=== PATIENT | female | born 1990 | race Caucasian/White ===

== ENCOUNTER 2017-07-20 03:50 | Inpatient (IN) | payer MEDICAID ==
[~2017-07-20] VITALS: Ht 165.1 cm; Wt 84.4 kg
[2017-07-20] MEDS ORDERED: OXYTOCIN 30 UNIT/D5LR 500 ML 500 ML IV PRN (04:36)
[2017-07-20] MEDS ORDERED: FAMOTIDINE(*) 20MG/50ML PREMIX 50 ML IVPB PRN (04:36)
[2017-07-20] MEDS ORDERED: METOCLOPRAMIDE 10 MG/2 ML SDV IVP PRN (04:40)
[2017-07-20] MEDS ORDERED: LIDOCAINE 1% LOCAL 300 MG/30ML INJ PRN (04:40)
[2017-07-20] MEDS ORDERED: fentaNYL CITR 100 MCG/2 ML AMP IVP PRN (04:40)
[2017-07-20] MEDS ORDERED: FLUSH 10 ML SYR IVP PRN (04:40)
[2017-07-20] MEDS ORDERED: LIDOCAINE/SOD BICARB 8.4% SYR SC PRN (04:40)
[2017-07-20] MEDS: LR(*) 1000 ML BAG 1,000 ML IV SCH ×3 (04:53→12:38)
[2017-07-20] MEDS ORDERED: PREN-148 PO (04:56)
[2017-07-20] MEDS ORDERED: FAMO20TA28 PO (04:56)
[2017-07-20 05:00] VITALS: BP 116/73; Ht 165.1 cm; Wt 84.4 kg
[2017-07-20 05:13] LABS: PLATELET COUNT, AUTOMATED 223 K/uL (150-450)
[2017-07-20] MEDS ORDERED: FENTANYL/ROPIVACAINE 100 ML BAG EPI PRN (05:50)
[2017-07-20] MEDS ORDERED: LIDOCAINE/PF 2% 200MG/10ML AMP 200 MG/10 ML AMPUL EPI PRN (05:50)
[2017-07-20] MEDS ORDERED: BUPIVACAINE 0.5% INJ 30ML VIAL EPI PRN (05:50)
[2017-07-20] MEDS ORDERED: ePHEDrine 25 MG/5 ML DISP.SYR IVP PRN (05:50)
[2017-07-20] MEDS ORDERED: BUPIVACAINE 0.25% MPF INJ EPI PRN (05:50)
[2017-07-20] MEDS ORDERED: LIDO/EPI 2% MPF 1:200,000 20ML EPI PRN (05:50)
[2017-07-20] MEDS ORDERED: fentaNYL CITR 100 MCG/2 ML AMP IT PRN (05:50)
--- NOTE | 2017-07-20 06:59 | History & Physical ---
History of Present Illness Age of Patient: 27 : 1 Para or TPAL: 0 EDC per LMP: Jul 30, 2017 EDC per U/S: Jul 18, 2017 Estimated Gestational Age: 40.2 Chief Complaint Contractions. History of Present Illness Admitted at term due to increasingly painful uterine contractions that became regular at about 0200 hours. No vaginal fluid leakage or bleeding. No OB complications. She had low back pain in late , and was referred to physical therapy, but declined. record is reviewed. History Patient's Blood Type: O Positive Rubella Status: Non-Immune Group B Strep Screen: Negative (06/22/17) Obstetrical History: Primigravida. Past Medical History: Unremarkable. 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 Single, but FOC is present and supportive. Denies use of alcohol, tobacco, or illicit drugs. Med Rec Home Meds Reported Medications Famotidine (PEPCID) 20 Mg Tablet, 20 MG PO QDAY Y for HEARTBURN, #10 TAB 07/20/17 Vit W-Ca,Fe,FA(<1 mg) ( Formula) 1 Each Tablet, PO DAILY 07/20/17 Exam General Exam Vital Signs Vital Signs Date Time Temp Pulse Resp B/P (MAP) Pulse Ox O2 Delivery O2 Flow Rate FiO2 07/20/17 05:00 97.4 98 18 116/73 (87) 99 Room Air General Apperance: Alert/Awake/No Acute Distress (appears in no apparent distress, but rates contraction pain as 6/10) Neuro: No Gross deficits Eyes: Normal Extraocular Movement & Vison ENT: Normal, Moist Mucous Membranes Neck: No Masses Cardiovascular: Regular Rate and Rhythm Respiratory: No Respiratory Distress, Clear to Auscultation Abdomen: Gravid - Non-Tender : No CVA Tenderness Musculoskeletal: No Weakness/Pain Extremities: Reflexes (2+/4 and symmetric), Edema (1+ bilateral pretibial), No Tender Calves Integumentary: Skin Intact without Lesions or Rash Psychological: Alert & Oriented X3, Appropriate Mood & Affect Cervical Dialation: 3 (per RN at 0413 hours) Cervical Effacement (%): 90 Station: -2 Presentation: Vertex Fetus Heart Tones: 130 FHT Category: I Medical Decision Making Data Points Result Diagram: 07/20/17 0445 VTE Prophylasis: Adult Pharmacological Contraindicati: Pt at Low Risk for VTE Mechanical Contraindications: Pt at Low Risk for VTE Assessment and Plan Problems: (1) 40 weeks gestation of Status: Acute Assessment & Plan: In early labor. I anticipate that she will probably want an epidural anesthetic in the next few hours. I also anticipate vaginal delivery. Copies to: MICHAEL VASQUEZ MARK F MD Jul 20, 2017 06:59
[2017-07-20] MEDS ORDERED: EPIDURAL KEYS XX PRN (08:00)
--- NOTE | 2017-07-20 09:55 | Labor Progress Note ---
Labor Subjective Progress Notes Subjective Doing good. Doesn't desire any pain medication at this time. Ambulatory for pain control. Good movement. No loss of amniotic fluid Feeling Movement?: Yes Vaginal Discharge/Fluid: No Bloody Show, No Clear Fluid, No Bloody Fluid, No Green Tinged Fluid, No Dark Green Fluid, No Mucous, No Small Amount, No Moderate Amount, No Large Amount, No Other Labor Pain: Mild Neurological: No Headache, No Other Eyes: No Visual Disturbances Labor Objective Vital Signs Vital Signs Date Time Temp Pulse Resp B/P (MAP) Pulse Ox O2 Delivery O2 Flow Rate FiO2 07/20/17 05:00 97.4 98 18 116/73 (87) 99 Room Air Cervical Dialation: 4 Cervical Effacement (%): 80 Cervical Consistency: Moderate Cervical Position: Mid Station: -1 Presentation: Vertex Uterine Contractions(Q min): 8 Uterine Contraction Strength: Moderate UC Resting Tone: Soft Fetus Estimated Weight(grams): 3200 Heart Tones: 130 Heart Tone Variabilty: Moderate FHT Accelerations: 15X15 FHT Decelerations: None FHT Category: I Other Result Diagram: 07/20/17 0445 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 Add oxytocin as needed. Epidural if desired. MICHAEL VASQUEZ DO Jul 20, 2017 09:55
[2017-07-20] MEDS ORDERED: FENTANYL/ROPIVACAINE 100ML BAG 100 ML ONE (11:00)
[2017-07-20] MEDS ORDERED: PHENYLEPHRINE/NS/PF 0.4MG/10ML ONE (12:05)
--- NOTE | 2017-07-20 15:22 | Anesthesia OB Pre-Anes Eval ---
History of Present Illness Anesthesia Start Date: Jul 20, 2017 Anesthesia Start Time: 11:10 OB Anesthesia Diagnosis: spontaneous labor, other (AROM) EDC: Jul 18, 2017 : 1 Para: 0 Pain Ratin Result Diagram: 07/20/17 0445 Height (Inches): 65.00 Weight (Pounds): 186 BMI Calculated: 30.95 Past Medical History Medical History: no pertinent history Surgical History: noncontributory Previous Anesthesia: general Attended Childbirth Classes?: No Hx Anesthesia Reactions: No Hx Family Anesthesia Reaction: No Home Meds Reported Medications Famotidine (PEPCID) 20 Mg Tablet, 20 MG PO QDAY Y for HEARTBURN, #10 TAB 07/20/17 Vit W-Ca,Fe,FA(<1 mg) ( Formula) 1 Each Tablet, PO DAILY 07/20/17 Allergies: Coded Allergies: sulfamethoxazole (Verified Allergy, Unknown, UNKNOWN, 07/20/17) trimethoprim (Verified Allergy, Unknown, UNKNOWN, 07/20/17) Anesthesia OB ROS Airway Class: l GI ROS: clear liquids, ice chips Last Solids Date: Jul 19, 2017 Last Solids Time: 18:00 ASA Classification: 2 Assessment and Plan Anesthesia Plan: CSE Epidural Catheter Removal: Removed by: (catheter will be removed by staff radiographer at a later, more convenient time.) RAY POWELL CRNA Jul 20, 2017 12:44
--- NOTE | 2017-07-20 15:23 | Procedure Note ---
Anesthetic Placement Note Anesthesia Plan: CSE Permit for Anesthesia Signed: Yes Anesthesia Technique: Patient Sitting Anesthesia Prep: Betadine Interspace: L 3-4 Local Anesthetic: 1% Lidocaine, 25 Gauge Needle Amount Local - cc's: 3 Anesthesia Needle: 17g Touhy/Schliff Anesthesia Attempts: 1 Loss of Resistance: Normal Saline Intrathecal Needle: 27 Gauge Pencan Cerebral Spinal Fluid: Yes, Clear Catheter Insertion (cm): 6 Catheter Type: Hadley - Spring Wound Epidural Dressing: Tegaderm, Tape, Adhesive [place] Anesthesia Tray: Lot Number ([id number]), Expiration Date (2018-02-20), Reference Number ([id number]) Anesthesia Medications: Intrathecal Dose: mcg Fentanyl (20), mg Marcaine MPF (2.5), Time (1128) Epidural Test Dose: 1.5 Lido/Epi (1:200,000), Dose - mL (3), Time (1130), Negative Epidural Loading Dose: 0.2% Ropivicaine, With Fentanyl 2mcg/ml, Dose - ml (15) , Time (1137), Other (in 5ml increments) Epidural Infusion: 0.2% Ropivicaine, With Fentanyl 2mcg/ml, Start Time: (1144) Epidural Pump Setting: Bolus Dose - mL (4), Lockout - Minutes (15), Maintenance Rate - mL/hr (8), Maximum per Hour - mL (24) Complications: None Comment: Ephedrine 10 mg IVP 2 doses by RN for hypotension with repositioning, BP better , but HR now 130's. IVF bolus continues, Neosynephrine 80mcg IVP 2 doses for hypotension, tachycardia. Third dose of neosynephrine given 20 minutes later, position changed to LSL, for HR 130's, mild hypotension. FHR 140's to 160's, mother asymptomatic. Will continue to observe. RAY POWELL CRNA Jul 20, 2017 12:53
--- NOTE | 2017-07-20 16:30 | Anesthesia Progress Note ---
Progress/Maintenance Report Received From: Other (Jorge Alberto Lyon CRNA) Care Assumed By: Tamara Lomeli CRNA Time Care Assumed: 16:00 Assessment and Plan Anesthesia Plan: CSE Anesthesia Stop Day: Jul 20, 2017 Anesthesia Stop Time: 16:40 Epidural Catheter Removal: Removed Catheter Intact, Yes, Removed by: (RN) Removal Date: Jul 20, 2017 TAMARA LOMELI CRNA Jul 20, 2017 16:29
[2017-07-20] MEDS ORDERED: HYDROCORTISONE 2.5% CR 30GM TB PR PRN (16:45)
[2017-07-20] MEDS ORDERED: MAGNESIUM HYDROXIDE* 30ML UDCP PO PRN (16:45)
[2017-07-20] MEDS ORDERED: LANOLIN OINT 7 GM TUBE TP PRN (16:45)
[2017-07-20] MEDS ORDERED: GLYCERIN/WITCH HAZEL LEAF 1 PK TP PRN (16:45)
[2017-07-20] MEDS ORDERED: BENZOCAINE 20% 60 ML BTL TP PRN (16:45)
[2017-07-20] MEDS ORDERED: APAP/HYDROCODONE 325/5 TAB PO PRN (16:45)
--- NOTE | 2017-07-20 16:52 | OB Delivery Note ---
Delivery Note Vaginal Delivery Type: Spont. Vaginal Delivery Delivery Date: Jul 20, 2017 Delivery Time: 16:15 Estimated Gestational Age(wks): 40.2 Length of Labor Stage I (hrs): 8 Length of Labor Stage II (hrs): 1.5 Labor Stage III (minutes): 5 Delivery Anesthesia: Epidural Infant Sex: Female Weight (gms): 2974 (6#8.9oz) Charlotte Apgars: 1 Minute (8), 5 Minute (9) Repair Needed: Labial (bilateral) Estimated Blood Loss: 400 Order Taker in Attendence: MICHAEL Burger DO Jul 20, 2017 16:52
[2017-07-20] MEDS ORDERED: IBUPROFEN 800 MG TAB PO SCH (17:00)
[2017-07-20 19:40] VITALS: BP 131/74
--- NOTE | 2017-07-20 20:52 | DELIVERY NOTE ---
DELIVERY DATE: July 20, 2017 SURGEON: Johnnie Pérez DO PREOPERATIVE DIAGNOSES 1. A 27-year-old 1, para zero, at 40-2/7 weeks' gestation. 2. Labor. POSTOPERATIVE DIAGNOSES 1. A 27-year-old 1, para zero, at 40-2/7 weeks' gestation. 2. Labor. 3. Delivery. PROCEDURES PERFORMED Spontaneous vaginal delivery with repair of bilateral labial lacerations. FINDINGS Live-born female infant at 1615 on July 20, 2017, Apgars of 8 and 8, weighing 2974 g, 6 pounds 8 ounces, three-vessel cord, intact placenta, over bilateral labial lacerations. ESTIMATED BLOOD LOSS 400 mL PATHOLOGY None. COMPLICATIONS None known. CONDITION Stable times two. Mother and infant remained in the LDRP. COUNTS Correct times two for all needles, laps, sponges, and instruments. LABOR SUMMARY The patient is a 27-year-old 1, para zero, who presented to Labor and Delivery with the chief complaint of painful contractions. Yesterday, she was noted to be 1 cm in the office. Upon presentation, she was noted to be 3 to 4 cm. She continued to contract spontaneously and continued to make cervical change. She did undergo amniotomy with clear amniotic fluid, eventually requesting an epidural for pain control. The patient continued to contract and eventually made it to complete, complete, and +2 station. Once complete, the patient had a few trial pushes, and then the delivery team was called and assembled. DELIVERY SUMMARY The patient was placed in the dorsal lithotomy position, prepped and draped in the usual sterile manner. Upon maternal pushing, the infant's head delivered in usual manner, followed by the anterior shoulder with gentle downward motion and the posterior shoulder with gentle upward motion. The remainder of the infant's body delivered spontaneously. Mouth and nose were bulb suctioned. A vigorous female was then placed on the maternal abdomen. The cord was clamped times two and cut after two minutes from delivery. The cord was cut by the infant's father. Cord blood gas was obtained. The placenta delivered spontaneously with gentle cord traction. Oxytocin was infused to help uterine tone. The uterus was massaged until firm. Upon inspection of the perineum, vagina, cervix, and labial, it was noted there were bilateral labial lacerations. These were repaired with a 4-0 Vicryl in a running manner. Once the lacerations were repaired, they were inspected and found to be hemostatic. At this point, the patient was cleaned, the labor bed was reassembled, and the mother and were allowed to continue to lynn. APOLONIA
[2017-07-20] MEDS: DOCUSATE CALCIUM 240 MG CAP PO SCH (22:31)
[2017-07-21] VITALS (7 sets, daily range): BP systolic 109–129; BP diastolic 60–78
[2017-07-21] MEDS: IBUPROFEN 800 MG TAB PO SCH ×3 (03:00→19:18)
[2017-07-21] MEDS ORDERED: DIPHTH/TETANUS/ACEL. PERTUSSIS IM ONLY ONE (09:00)
[2017-07-21] MEDS ORDERED: MEASLES,MUMP,RUBELLA VAC 0.5ML SUBQ ONE (09:00)
[2017-07-21] MEDS ORDERED: INFLUENZA VIRUS VAC 0.5 ML SYR IM ONLY ONE (09:00)
[2017-07-21] MEDS: DOCUSATE CALCIUM 240 MG CAP PO SCH ×2 (09:04→20:47)
--- NOTE | 2017-07-21 09:43 | OB/GYN Progress Note ---
OB Subjective Progress Notes Subjective Doing good this morning. Reports some pain on her bottom. Bleeding appropriate. Some difficulty with . Tolerating regular diet. Ambulatory. GI: NEG Nausea, NEG Vomiting, NEG Flatus, NEG Bowel Movement : Voiding Well, Scant Pain: Mild, Tolerating PO Pain Meds Neurological: No Headache, No Other Eyes: No Visual Disturbances OB Objective Physical Exam Vital Signs Date Time Temp Pulse Resp B/P (MAP) Pulse Ox O2 Delivery O2 Flow Rate FiO2 07/21/17 07:25 97.5 75 16 119/60 (79) Room Air 07/21/17 00:51 94 General Appearance: Alert/Awake/No Acute Distress (appears in no apparent distress, but rates contraction pain as 6/10) Neurological: No Gross deficits Eyes: Normal Extraocular Movement & Vison ENT: Normal Neck: No Masses Cardiovascular: Normal Rhythm & Peripheral Pulses, Regular Rate and Rhythm Respiratory: No Respiratory Distress, Clear to Auscultation Abdomen: Soft, Non-Tender, Non-Distended, Fundus Firm Extremities: Reflexes (2+/4 and symmetric), Edema (1+ bilateral pretibial), No Tender Calves Integumentary: Skin Intact without Lesions or Rash Psychological: Alert & Oriented X3, Appropriate Mood & Affect Result Diagram: 07/21/17 0617 Assessment and Plan EXECUTIVE CHEF Assessment: Stable EXECUTIVE CHEF Plan: Discharge Home Tomorrow Problems: (1) 40 weeks gestation of Status: Acute Assessment & Plan: with partial cleft and having difficulty . Plan on staying an additional night to help with feeding. MICHAEL VASQUEZ DO Jul 21, 2017 09:43
--- NOTE | 2017-07-21 13:33 | Anesthesia Post Eval Note ---
Anesthesia Post Eval Note Vital Signs 07/21/17 07/21/17 07/21/17 00:51 07:25 12:00 Temp 98.0 Pulse 78 Resp 18 B/P (MAP) 119/68 (85) Pulse Ox 94 O2 Delivery Room Air Pt able to participate in Eval: Yes Cardiovascular Status: Satisfactory Respiratory Status: Satisfactory Pain Managment: Satisfactory PO Nausea/Vomiting: Satisfactory Temperature Management: Satisfactory Mental Status: Satisfactory, Alert, Oriented X3 Post-Op Hydration Status: Satisfactory, Tolerating PO Well, Voiding w/o Difficulty Anesthesia Type: TAMARA JAIME CRNA Jul 21, 2017 13:32
[2017-07-21] MEDS: ACETAMINOPHEN 325 MG TAB PO PRN (17:00)
[2017-07-22 03:13] VITALS: BP 113/65
[2017-07-22] MEDS: IBUPROFEN 800 MG TAB PO SCH ×3 (03:13→19:17)
[2017-07-22] MEDS: ACETAMINOPHEN 325 MG TAB PO PRN (05:29)
--- NOTE | 2017-07-22 08:50 | OB/GYN Progress Note ---
OB Subjective Progress Notes Subjective Doing good this morning. Reports some tenderness along the bottom of her breasts. with out any difficulty. Tolerating regular diet. Ambulatory. Voiding with out any difficulty. GI: NEG Nausea, NEG Vomiting, NEG Flatus, NEG Bowel Movement : Voiding Well, Vaginal Bleeding, Scant Pain: Mild, Tolerating PO Pain Meds Neurological: No Headache, No Other Eyes: No Visual Disturbances OB Objective Physical Exam Vital Signs Date Time Temp Pulse Resp B/P (MAP) Pulse Ox O2 Delivery O2 Flow Rate FiO2 07/22/17 03:13 98.4 86 20 113/65 (81) 07/21/17 22:39 Room Air 07/21/17 00:51 94 General Appearance: Alert/Awake/No Acute Distress (appears in no apparent distress, but rates contraction pain as 6/10) Neurological: No Gross deficits Eyes: Normal Extraocular Movement & Vison ENT: Normal Neck: No Masses Cardiovascular: Normal Rhythm & Peripheral Pulses, Regular Rate and Rhythm Respiratory: No Respiratory Distress, Clear to Auscultation Abdomen: Soft, Non-Tender, Non-Distended, Fundus Firm Extremities: No Cyanosis,Clubbing or Edema, Warm, Perfused, No Tender Calves Integumentary: Skin Intact without Lesions or Rash Psychological: Alert & Oriented X3, Appropriate Mood & Affect Result Diagram: 07/21/17 0617 Assessment and Plan 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 Follow up in 6 weeks. MICHAEL VASQUEZ DO Jul 22, 2017 08:50
[2017-07-22] MEDS ORDERED: IBUP800T37 PO (08:51)
[2017-07-22] MEDS ORDERED: LOR5/325 PO (08:51)
--- NOTE | 2017-07-22 08:54 | OB/GYN Discharge Summary ---
Discharge Summary Reason for Hosp/Final Diag: (1) 40 weeks gestation of Status: Acute Hospital Course & Plan: Pt presented in Labor. Did undergo amniotomy and received an epidural. Progressed to complete and delivered vaginally with out any difficulty. See delivery note for details. Pediatricians noted a partial cleft palate on physical exam. Pt remained in the hospital for 2 days post for support and jaundice of her . Pt to go to room in status. Lates Vital Signs Vital Signs Date Time Temp Pulse Resp B/P (MAP) Pulse Ox O2 Delivery O2 Flow Rate FiO2 07/22/17 03:13 98.4 86 20 113/65 (81) 07/21/17 22:39 Room Air 07/21/17 00:51 94 Weight (Pounds): 186 Result Diagram: 07/21/17 06 Condition: Improved Discharge: Home Home Meds Active Scripts Ibuprofen (IBUPROFEN) 800 Mg Tablet, 800 MG PO 0300,1100,1900, #30 TAB 0 Refills Prov:MICHAEL VASQUEZ DO 07/22/17 Hydrocodone Bit/Acetaminophen (HYDROCODON-ACETAMINOPHEN 5-325) 1 Each Tablet, 1- 2 EACH PO Q4H Y for PAIN, #20 TAB 0 Refills Prov:MICHAEL VASQUEZ DO 07/22/17 Reported Medications Famotidine (PEPCID) 20 Mg Tablet, 20 MG PO QDAY Y for HEARTBURN, #10 TAB 07/20/17 Vit W-Ca,Fe,FA(<1 mg) ( Formula) 1 Each Tablet, PO DAILY 07/20/17 [phone] Follow up in: 6 wks PP or PO Discharge Diet: As Tolerates, Resume Prior Admit Diet, Increase Fluid Intake Discharge Activity: As Tolerates, Pelvic Rest MICHAEL VASQUEZ DO Jul 22, 2017 08:54
[2017-07-22] MEDS: DOCUSATE CALCIUM 240 MG CAP PO SCH (09:15)
[2017-07-22 12:00] VITALS: BP 128/72
[2017-07-22] MEDS ORDERED: MEASLES,MUMP,RUBELLA VAC 0.5ML SUBQ ONE (19:10)
== END 2017-07-22 19:45 | disposition home or self-care (01) | DRG 775 ==
LOC: OB 03:50
PROVIDERS: ADMIT Obstetrics & Gynecology; ATTEND Obstetrics & Gynecology
PROC: 10E0XZZ Delivery of Products of Conception, External Approach (ICD-10-PCS; principal; 2017-07-20)
PROC: 0HQ9XZZ Repair Perineum Skin, External Approach (ICD-10-PCS; 2017-07-20)
PROC: 10907ZC Drainage of Amniotic Fluid, Therapeutic from Products of Conception, Via Natural or Artificial Opening (ICD-10-PCS; 2017-07-20)
DX: O70.0 First degree perineal laceration during delivery (principal); Z3A.40 40 weeks gestation of pregnancy; Z23 Encounter for immunization; Z37.0 Single live birth
CPT/HCPCS: 36415; 85025; 85027; 86850; 86900; 86901; 90471; 90707; J2370; J2590; J7120

== ENCOUNTER → 2017-11-26 | Outpatient (CLI) | payer MEDICAID ==
[2017-07-20 05:00] VITALS: BMI 30.9
[~2017-11-26] MED LIST: FAMO20TA28 PO; IBUP800T37 PO; LOR5/325 PO; PREN-148 PO
[2017-11-26 09:30] LABS: PLATELET COUNT, AUTOMATED 335 K/uL (150-450)
== END ==
LOC: LAB 08:47
PROVIDERS: ATTEND Student in an Organized Health Care Education/Training Program
DX: Z34.81 Encounter for supervision of other normal pregnancy, first trimester (principal); R82.79 Other abnormal findings on microbiological examination of urine
CPT/HCPCS: 36415; 81001; 85025; 86592; 86703; 86762; 86850; 86900; 86901; 87088; 87340

== ENCOUNTER → 2017-12-10 | Outpatient (CLI) | payer MEDICAID ==
[2017-07-20 05:00] VITALS: BMI 30.9
== END ==
LOC: LAB 08:49
PROVIDERS: ATTEND Student in an Organized Health Care Education/Training Program
DX: Z34.91 Encounter for supervision of normal pregnancy, unspecified, first trimester (principal)
CPT/HCPCS: 87491; 87591

== ENCOUNTER → 2018-02-11 | Outpatient (CLI) | payer MEDICAID ==
[2017-07-20 05:00] VITALS: BMI 30.9
--- NOTE | 2018-02-11 15:31 | RADIOLOGY IMAGING REPORT ---
FACILITY: [facility] [place] PATIENT NAME: Thalia Baer : 1990 MR: [id number] V: [id number] EXAM DATE: ORDERING PHYSICIAN: MICHAEL VASQUEZ TECHNOLOGIST: Location: [facility] Patient: Thalia Baer : 1990 Visit/Account:[id number] Date of Sevice: 02/11/2018 [facility] OB ANATOMICAL SURVEY HISTORY: 20 week anatomical survey COMPARISON: None. TECHNIQUE: Transabdominal imaging was performed for assessment of the fetus and maternal pelvic s tructures. Transvaginal imaging was not performed. FINDINGS: Intrauterine gestations: One. presentation: Breech, variable. heart rate: 156 bpm. Amniotic fluid volume: Normal; ANGELA 13.96 cm; MVP 4.16 cm. Placenta: Fundal and towards the left. Uterus: Gravid, otherwise grossly unremarkable where visualized. Maternal adnexa/ovaries: Grossly unremarkable, ovaries not visualized. Cervix: Grossly long and closed. Gestational Parameters: BPD: 4.54 cm, 45th percentile HC: 17.08 cm, 34th percentile AC: 13.83 cm, 25th percentile FL: 3.14 cm, 38th percentile Average ultrasound age (AUA): 19 weeks/ five days Estimated age based on LMP: 19 weeks/ six days Estimated weight (EFW): 297 grams +/- 44 grams, 27th percentile Anatomic Survey: Intracranial structures, 4-chamber heart, stomach, kidneys, urinary bladder, spine, 3-vessel cord and cord insertion are unremarkable. Two upper and two lower extremities visualized. IMPRESSION: Single viable fetus in variable breech presentation with an estimated gestational age by measurements of 19 weeks and five days. Estimated weight 297 g, 27th percentile Report Dictated By: Mariam Menjivar MD at 02/11/2018 3:22 PM Report E-Signed By: Mariam Menjivar MD at 02/11/2018 3:26 PM WSN:[email or web address]
== END ==
LOC: RAD 09:12
PROVIDERS: ATTEND Student in an Organized Health Care Education/Training Program
DX: O32.1XX0 Maternal care for breech presentation, not applicable or unspecified (principal); Z3A.19 19 weeks gestation of pregnancy